=== PATIENT | female | born 1940 | race Asian ===

== ENCOUNTER 2023-10-27 12:10 | Inpatient (IN) | payer OTHER, MEDICAID ==
[~2023-10-27] VITALS: Ht 160 cm; Wt 66.7 kg
[2023-10-27 12:14] VITALS: BP_SYST 156; PULSE 130; RESP 24; TEMP 96.6; O2SAT 93
[2023-10-27 13:06] LABS: BASOPHILS # (AUTO) 0.1 K/uL (0.0-0.2); BASOPHILS % (AUTO) 0.3 % (0.0-2.0); HEMATOCRIT 41.4 % (36-48); HEMOGLOBIN 14.1 g/dL (12.0-16.0); LYMPHOCYTES # (AUTO) 1.4 K/uL (1.0-5.5); LYMPHOCYTES % (AUTO) 7.1 % (20.5-51.5); MEAN CORPUSCULAR HEMOGLOBIN 31 pg (27-31); MEAN CORPUSCULAR HGB CONC 34 % (32-36); MEAN CORPUSCULAR VOLUME 91 fL (79.0-98.0); MONOCYTES # (AUTO) 2.3 K/uL (0.0-1.0); MONOCYTES % (AUTO) 12.1 % (1.7-9.3); NEUTROPHILS # (AUTO) 15.4 K/uL (1.8-7.7); NEUTROPHILS % (AUTO) 80.5 % (40.0-70.0); PLATELET COUNT (AUTO) 231 K/uL (130-430); RED BLOOD CELL COUNT(AUTO) 4.53 MIL/uL (4.2-6.2); RED CELL DISTRIBUTION WIDTH 14.6 % (9.0-15.0); WHITE BLOOD COUNT (AUTO) 19.2 K/uL (4.8-10.8)
[2023-10-27 13:15] LABS: INR 1.2 (0.8-1.2); PROTHROMBIN TIME 11.9 SECS (9.5-12.5)
[2023-10-27 13:28] LABS: ALANINE AMINOTRANSFERASE 25 U/L (12-78); ALBUMIN 2.9 g/dL (3.4-4.8); ANION GAP 20 (5-15); ASPARTATE AMINOTRANSFERASE 133 U/L (10-37); BILIRUBIN,DIRECT 0.7 mg/dL (0.0-0.3); CALCIUM 9.9 mg/dL (8.4-11.0); CARBON DIOXIDE 19 mmol/L (23-29); CHLORIDE 100 mmol/L (98-107); CREATINE KINASE, TOTAL 6319 U/L (26-192); CREATININE 2.15 mg/dL (0.55-1.30); FREE T4 (FREE THYROXINE) 1.2 ng/dL (0.6-1.6); GLUCOSE 200 mg/dL (74-106); POTASSIUM 4.3 mmol/L (3.5-5.1); SODIUM SERUM 139 mmol/L (136-145); THYROID STIMULATING HORMONE 0.55 uIu/mL (0.34-4.82); TOTAL BILIRUBIN 1.8 mg/dL (0.0-1.0); TOTAL PROTEIN, SERUM 9.9 g/dL (6.4-8.3); UREA NITROGEN, BLOOD 39 mg/dL (8-21)
[2023-10-27] MEDS: NACL 0.9% 2,000 ML IV ONE (13:56)
[2023-10-27 14:02] LABS: CKMB RELATIVE INDEX 0.3 (0.0-2.9)
[2023-10-27 14:21] LABS: BLOOD, URINE 3+ (NEGATIVE); CLARITY/URINE SL CLOUDY (CLEAR); COLOR,URINE YELLOW (YELLOW); GLUCOSE,URINE NEGATIVE (NEGATIVE); KETONES,URINE NEGATIVE (NEGATIVE); LEUKOCYTE ESTERASE ,URINE 2+ (NEGATIVE); NITRITE, URINE NEGATIVE (NEGATIVE); PROTEIN URINE 3+ (NEGATIVE)
[2023-10-27 14:33] LABS: BILIRUBIN,URINE 1+ (NEGATIVE)
[2023-10-27 14:40] LABS: BACTERIA,URINE MANY /HPF (None Seen); FINE GRANULAR CASTS,URINE 0-10 /LPF (None Seen); MUCUS,URINE None Seen /LPF (None Seen); WBC,URINE >100 /HPF (0-3)
[2023-10-27] MEDS: SODIUM BICARBONATE 8.4% JECT 50 MEQ/50 ML SYRINGE IVP ONE (14:47)
[2023-10-27] MEDS: NACL 0.9% 1,000 ML IV SCH (15:00)
[2023-10-27 15:16] LABS: ACETONE, SERUM NEGATIVE (NEGATIVE)
[2023-10-27 17:00] VITALS: BP_SYST 126; PULSE 110; RESP 18; TEMP 97.8; O2SAT 94
[2023-10-27] MEDS: LEVOFLOXACIN 250 MG/D5W 50 ML IV SCH (19:32)
[2023-10-27] MEDS ORDERED: ACETAMINOPHEN 325 MG TABLET PO PRN (19:45)
[2023-10-27] MEDS ORDERED: NALOXONE HCL 0.4 MG/ML AMP (NARCAN) IVP PRN ×2 (19:45)
[2023-10-27] MEDS ORDERED: HYDROcodone/ACETAMIN 5-325 MG TAB (NORCO/ VICODIN) PO PRN (19:45)
[2023-10-27] MEDS ORDERED: INSULIN REGULAR, HUMAN 10 UNITS/0.1 ML, 3 ML VIAL SUBCUT PRN (19:45)
[2023-10-27] MEDS ORDERED: ONDANSETRON HCL 4 MG/2 ML VIAL IVP PRN (19:45)
[2023-10-27 20:00] VITALS: BP_SYST 140; PULSE 103; RESP 18; TEMP 97.2; O2SAT 95
[2023-10-27] MEDS ORDERED: GABA-331 PO (20:09)
[2023-10-27] MEDS ORDERED: ISO10 PO (20:09)
[2023-10-27] MEDS ORDERED: POTA8TAB66 PO (20:09)
[2023-10-27] MEDS ORDERED: ATEN-41 PO (20:09)
[2023-10-27] MEDS ORDERED: LIP40 PO (20:09)
[2023-10-27] MEDS ORDERED: HYDR-3917 PO (20:09)
[2023-10-27] MEDS ORDERED: HYDR50TA44 PO (20:09)
[2023-10-27] MEDS ORDERED: LISI-209 PO (20:09)
[2023-10-27] MEDS ORDERED: OMEP-268 PO (20:09)
[2023-10-27] MEDS ORDERED: METF-834 PO (20:09)
[2023-10-27] MEDS ORDERED: SITA100T11 PO (20:09)
[2023-10-27] MEDS ORDERED: ZOLP10TA2 PO (20:09)
[2023-10-27] MEDS ORDERED: INSULIN REGULAR, HUMAN 100 UNITS/ML, 3 ML VIAL SUBCUT SCH (21:00)
[2023-10-27] MEDS: HYDROcodone/ACETAMIN 10-325 MG TAB PO PRN (21:07)
[2023-10-27] MEDS: INSULIN REGULAR, HUMAN 100 UNITS/ML, 3 ML VIAL (humuLIN R) SUBCUT PRN (22:11)
[2023-10-28] VITALS: BP_SYST 101; PULSE 86; RESP 18; TEMP 97.4; O2SAT 94
[2023-10-28 05:36] LABS: BASOPHILS % (AUTO) 0.3 % (0.0-2.0); HEMATOCRIT 34.5 % (36-48); HEMOGLOBIN 11.6 g/dL (12.0-16.0); LYMPHOCYTES % (AUTO) 7.1 % (20.5-51.5); MEAN CORPUSCULAR HEMOGLOBIN 30 pg (27-31); MEAN CORPUSCULAR HGB CONC 34 % (32-36); MEAN CORPUSCULAR VOLUME 91 fL (79.0-98.0); MONOCYTES # (AUTO) 2.3 K/uL (0.0-1.0); NEUTROPHILS % (AUTO) 76.6 % (40.0-70.0); PLATELET COUNT (AUTO) 174 K/uL (130-430); RED BLOOD CELL COUNT(AUTO) 3.81 MIL/uL (4.2-6.2); RED CELL DISTRIBUTION WIDTH 14.5 % (9.0-15.0); WHITE BLOOD COUNT (AUTO) 14.3 K/uL (4.8-10.8)
[2023-10-28] MEDS ORDERED: D5W 1,000 ML IV PRN (06:45)
[2023-10-28] MEDS ORDERED: DEXTROSE 50%-WATER 50 ML DISP.SYRIN IVP PRN (06:45)
[2023-10-28] MEDS ORDERED: GLUCOSE (DEXTROSE) ORAL GEL -Adults PO PRN (06:45)
[2023-10-28 08:14] LABS: ALANINE AMINOTRANSFERASE 36 U/L (12-78); ANION GAP 10 (5-15); ASPARTATE AMINOTRANSFERASE 130 U/L (10-37); CARBON DIOXIDE 27 mmol/L (23-29); CHLORIDE 111 mmol/L (98-107); CREATININE 1.14 mg/dL (0.55-1.30); GLUCOSE 124 mg/dL (74-106); POTASSIUM 3.5 mmol/L (3.5-5.1); SODIUM SERUM 148 mmol/L (136-145); TOTAL BILIRUBIN 1.6 mg/dL (0.0-1.0); TOTAL PROTEIN, SERUM 7.3 g/dL (6.4-8.3); UREA NITROGEN, BLOOD 26 mg/dL (8-21)
[2023-10-28 08:23] VITALS: BP_SYST 111; PULSE 77; RESP 20; TEMP 97.5; O2SAT 95
[2023-10-28 09:10] VITALS: O2SAT 95
[2023-10-28 11:24] VITALS: BP_SYST 144; PULSE 80; RESP 15; TEMP 98.1; O2SAT 96
[2023-10-28] MEDS ORDERED: LORazepam 2 MG/ML VIAL IVP PRN (12:00)
[2023-10-28] MEDS: GABAPENTIN 300 MG CAPSULE PO SCH (14:24)
[2023-10-28] MEDS: ISOSORBIDE DINITRATE 10 MG TABLET (ISORDIL) PO SCH (14:25)
[2023-10-28] MEDS: ATORVASTATIN 20 MG TABLET PO ONE (14:25)
[2023-10-28] MEDS ORDERED: NON-FORMULARY MEDICATION (Gabapentin 600 MG) PO SCH (15:00)
[2023-10-28 15:02] VITALS: BP_SYST 136; PULSE 84; RESP 16; TEMP 96.7; O2SAT 93
[2023-10-28 20:00] VITALS: BP_SYST 125; PULSE 94; RESP 18; TEMP 97.3; O2SAT 93
[2023-10-28] MEDS: ATENOLOL 25 MG TABLET(TENORMIN) PO SCH (20:38)
[2023-10-28] MEDS: hydrALAZINE HCL 25 MG TABLET PO SCH (20:38)
[2023-10-28] MEDS: ZOLPIDEM TARTRATE 5 MG TABLET PO PRN (23:10)
[2023-10-29 00:20] VITALS: BP_SYST 98; PULSE 76; RESP 15; TEMP 97.4; O2SAT 94
[2023-10-29 05:17] LABS: BASOPHILS % (AUTO) 0.4 % (0.0-2.0); EOSINOPHILS # (AUTO) 0.1 K/uL (0.0-0.4); EOSINOPHILS % (AUTO) 0.9 % (0.0-4.0); HEMATOCRIT 31.9 % (36-48); HEMOGLOBIN 10.7 g/dL (12.0-16.0); LYMPHOCYTES # (AUTO) 1.3 K/uL (1.0-5.5); LYMPHOCYTES % (AUTO) 12.1 % (20.5-51.5); MEAN CORPUSCULAR HEMOGLOBIN 30 pg (27-31); MEAN CORPUSCULAR HGB CONC 33 % (32-36); MEAN CORPUSCULAR VOLUME 91 fL (79.0-98.0); MONOCYTES # (AUTO) 1.5 K/uL (0.0-1.0); MONOCYTES % (AUTO) 14.4 % (1.7-9.3); NEUTROPHILS # (AUTO) 7.6 K/uL (1.8-7.7); NEUTROPHILS % (AUTO) 72.2 % (40.0-70.0); PLATELET COUNT (AUTO) 173 K/uL (130-430); RED BLOOD CELL COUNT(AUTO) 3.53 MIL/uL (4.2-6.2); RED CELL DISTRIBUTION WIDTH 14.8 % (9.0-15.0); WHITE BLOOD COUNT (AUTO) 10.5 K/uL (4.8-10.8)
[2023-10-29 05:28] LABS: ERYTHROCYTE SEDIMENTATION RATE 99 MM/HR (0-20)
[2023-10-29 05:53] LABS: ANION GAP 9 (5-15); CARBON DIOXIDE 25 mmol/L (23-29); CHLORIDE 111 mmol/L (98-107); CREATINE KINASE, TOTAL 1804 U/L (26-192); CREATININE 0.85 mg/dL (0.55-1.30); GLUCOSE 124 mg/dL (74-106); PHOSPHORUS 1.9 mg/dL (2.7-4.5); POTASSIUM 3.7 mmol/L (3.5-5.1); SODIUM SERUM 145 mmol/L (136-145); UREA NITROGEN, BLOOD 19 mg/dL (8-21)
[2023-10-29 07:30] VITALS: BP_SYST 158; PULSE 73; RESP 16; TEMP 98; O2SAT 93
[2023-10-29 07:59] LABS: CKMB RELATIVE INDEX 0.2 (0.0-2.9)
[2023-10-29] MEDS: ATORVASTATIN 20 MG TABLET PO SCH (09:00)
[2023-10-29] MEDS ORDERED: NON-FORMULARY MEDICATION (Omeprazole 40 MG) PO SCH (09:00)
[2023-10-29] MEDS: PANTOPRAZOLE SODIUM 40 MG TAB PO SCH (09:00)
[2023-10-29 09:15] VITALS: O2SAT 93
[2023-10-29] MEDS ORDERED: NA PHOS 15 MM in NS 250 ML IV ONE (09:15)
[2023-10-29] MEDS: POTASSIUM CHLORIDE 8 MEQ TABLET.ER PO SCH (09:25)
[2023-10-29] MEDS: CALCIUM GLUC 2 GM/100ML-NACL 100 ML IV ONE (13:10)
[2023-10-29] MEDS: NA PHOS 15 MM in NS 250 ML IV ONE (14:44)
[2023-10-29] MEDS: NORMAL SALINE 5 ML DISP.SYRIN IVF SCH (16:52)
[2023-10-29 18:19] VITALS: BP_SYST 158; PULSE 74; RESP 16; TEMP 98; O2SAT 94
[2023-10-29 20:00] VITALS: BP_SYST 128; PULSE 76; RESP 16; TEMP 97.6; O2SAT 96
[2023-10-30] VITALS: BP_SYST 125; PULSE 95; RESP 16; TEMP 97.8; O2SAT 95
[2023-10-30 06:30] LABS: BASOPHILS # (AUTO) 0.1 K/uL (0.0-0.2); BASOPHILS % (AUTO) 0.5 % (0.0-2.0); EOSINOPHILS # (AUTO) 0.2 K/uL (0.0-0.4); EOSINOPHILS % (AUTO) 1.6 % (0.0-4.0); HEMATOCRIT 32.5 % (36-48); HEMOGLOBIN 10.8 g/dL (12.0-16.0); LYMPHOCYTES # (AUTO) 2.3 K/uL (1.0-5.5); LYMPHOCYTES % (AUTO) 20.1 % (20.5-51.5); MEAN CORPUSCULAR HEMOGLOBIN 30 pg (27-31); MEAN CORPUSCULAR HGB CONC 33 % (32-36); MEAN CORPUSCULAR VOLUME 91 fL (79.0-98.0); MONOCYTES # (AUTO) 1.4 K/uL (0.0-1.0); MONOCYTES % (AUTO) 12.5 % (1.7-9.3); NEUTROPHILS # (AUTO) 7.4 K/uL (1.8-7.7); NEUTROPHILS % (AUTO) 65.3 % (40.0-70.0); PLATELET COUNT (AUTO) 216 K/uL (130-430); RED BLOOD CELL COUNT(AUTO) 3.57 MIL/uL (4.2-6.2); RED CELL DISTRIBUTION WIDTH 14.7 % (9.0-15.0); WHITE BLOOD COUNT (AUTO) 11.3 K/uL (4.8-10.8)
[2023-10-30 06:33] LABS: ERYTHROCYTE SEDIMENTATION RATE > 130 MM/HR (0-20)
[2023-10-30 06:43] LABS: ANION GAP 8 (5-15); CALCIUM 8.9 mg/dL (8.4-11.0); CARBON DIOXIDE 26 mmol/L (23-29); CHLORIDE 107 mmol/L (98-107); CREATININE 1.05 mg/dL (0.55-1.30); GLUCOSE 138 mg/dL (74-106); PHOSPHORUS 3.6 mg/dL (2.7-4.5); SODIUM SERUM 141 mmol/L (136-145); UREA NITROGEN, BLOOD 17 mg/dL (8-21)
[2023-10-30 07:14] LABS: CKMB RELATIVE INDEX 0.4 (0.0-2.9)
[2023-10-30 07:50] VITALS: BP_SYST 123; PULSE 77; RESP 16; TEMP 97.4; O2SAT 93
[2023-10-30 10:15] VITALS: O2SAT 93
[2023-10-30] MEDS: D5/0.45 NS 1,000 ML IV SCH (11:45)
[2023-10-30 19:04] VITALS: BP_SYST 150; PULSE 81; RESP 17; TEMP 97.3; O2SAT 94
[2023-10-30 20:00] VITALS: BP_SYST 121; PULSE 80; RESP 16; TEMP 102.7; O2SAT 94
[2023-10-30] MEDS: ACETAMINOPHEN 325 MG TABLET PO PRN (20:30)
[2023-10-31] VITALS: BP_SYST 100; PULSE 60; RESP 16; TEMP 97.7; O2SAT 96
[2023-10-31 06:01] LABS: BASOPHILS % (AUTO) 0.3 % (0.0-2.0); EOSINOPHILS # (AUTO) 0.1 K/uL (0.0-0.4); EOSINOPHILS % (AUTO) 1.3 % (0.0-4.0); HEMATOCRIT 29.6 % (36-48); HEMOGLOBIN 9.9 g/dL (12.0-16.0); LYMPHOCYTES # (AUTO) 1.1 K/uL (1.0-5.5); LYMPHOCYTES % (AUTO) 10.6 % (20.5-51.5); MEAN CORPUSCULAR HEMOGLOBIN 30 pg (27-31); MEAN CORPUSCULAR HGB CONC 34 % (32-36); MEAN CORPUSCULAR VOLUME 90 fL (79.0-98.0); MONOCYTES % (AUTO) 18.3 % (1.7-9.3); NEUTROPHILS # (AUTO) 7.5 K/uL (1.8-7.7); PLATELET COUNT (AUTO) 193 K/uL (130-430); RED BLOOD CELL COUNT(AUTO) 3.29 MIL/uL (4.2-6.2); RED CELL DISTRIBUTION WIDTH 14.7 % (9.0-15.0); WHITE BLOOD COUNT (AUTO) 10.7 K/uL (4.8-10.8)
[2023-10-31 06:19] LABS: ERYTHROCYTE SEDIMENTATION RATE 95 MM/HR (0-20)
[2023-10-31 06:29] LABS: ANION GAP 7 (5-15); CALCIUM 8.1 mg/dL (8.4-11.0); CARBON DIOXIDE 26 mmol/L (23-29); CHLORIDE 104 mmol/L (98-107); CREATINE KINASE, TOTAL 744 U/L (26-192); CREATININE 0.93 mg/dL (0.55-1.30); GLUCOSE 161 mg/dL (74-106); POTASSIUM 3.6 mmol/L (3.5-5.1); SODIUM SERUM 137 mmol/L (136-145); UREA NITROGEN, BLOOD 15 mg/dL (8-21)
[2023-10-31 06:55] LABS: CKMB RELATIVE INDEX 0.1 (0.0-2.9)
[2023-10-31 07:15] LABS: NEUTROPHILS % (AUTO) 69.5 % (40.0-70.0)
[2023-10-31 08:20] VITALS: O2SAT 96
[2023-10-31 08:52] VITALS: BP_SYST 137; PULSE 64; RESP 18; TEMP 98.1; O2SAT 96
[2023-10-31] MEDS ORDERED: LANOLIN ALCOHOL/MO/W.PET/CERES 57 GM CREAM..G. TP ONE (11:00)
[2023-10-31 12:31] VITALS: BP_SYST 106; PULSE 72; RESP 18; TEMP 98.6; O2SAT 97
[2023-10-31 13:03] VITALS: BP_SYST 106; PULSE 72; RESP 18; TEMP 98.6; O2SAT 97
[2023-10-31] MEDS ORDERED: LEVO-62 PO (17:45)
[2023-10-31] MEDS ORDERED: LANOLIN ALCOHOL/MO/W.PET/CERES 57 GM CREAM..G. TP SCH (21:00)
== END 2023-10-31 15:30 | disposition home health service (06) | DRG 871 ==
LOC: SED 12:10 → STU 14:12 → SMU 10-31 05:26
PROVIDERS: ADMIT Preventive Medicine Preventive Medicine/Occupational Environmental Medicine; ATTEND Preventive Medicine Preventive Medicine/Occupational Environmental Medicine
DX: A41.50 Gram-negative sepsis, unspecified (principal); N17.0 Acute kidney failure with tubular necrosis; N39.0 Urinary tract infection, site not specified; M62.82 Rhabdomyolysis; E44.0 Moderate protein-calorie malnutrition; E11.65 Type 2 diabetes mellitus with hyperglycemia; I10 Essential (primary) hypertension; D64.9 Anemia, unspecified; E83.52 Hypercalcemia; G89.29 Other chronic pain; Z20.822 Contact with and (suspected) exposure to COVID-19; E88.09 Other disorders of plasma-protein metabolism, not elsewhere classified; B96.1 Klebsiella pneumoniae [K. pneumoniae] as the cause of diseases classified elsewhere; Z79.899 Other long term (current) drug therapy; Z68.26 Body mass index [BMI] 26.0-26.9, adult
CPT/HCPCS: 36415; 70450-TC; 71045; 76770; 80048; 80053; 80076; 81000; 81001; 81015; 82009; 82550; 82553; 82948; 83605; 83735; 84100; 84439; 84443; 84484; 85025; 85610; 85651; 85730; 87040; 87086; 87186; 93005; 96361; 96374; 97110-GP; 97112-GP; 97116-GP; 97530-GP; 99285; G0378; J1815; J1956; J7050